=== PATIENT | female | born 1955 | race Caucasian/White ===

== ENCOUNTER 2021-04-09 08:44 | Outpatient (CLI) | payer OTHER, SELFPAY ==
--- NOTE | ~2021-04-09 | CT_ITS ---
EXAMINATION: CT LE LT wo con DATE: 04/09/2021 09:18 INDICATION: Unilateral primary osteoarthritis, left knee. TECHNIQUE: Computed tomography (CT) of the left lower limb was performed without intravenous contrast . Automated exposure control and iterative reconstruction technique were employed. The dose-length pr oduct was 1591.61 mGy-cm. COMPARISON: Left knee radiographs 02/19/2021 FINDINGS: Bone alignment is normal. No fracture. There is mild left hip osteoarthritis. Left knee dem onstrates severe osteoarthritis of the medial and lateral compartments and moderate osteoarthritis of the patellofemoral compartment. There is a small knee joint effusion. There is a small Clarke's cyst. The left talar dome is normal. IMPRESSION: 1. Severe left knee osteoarthritis. 2. Small left knee joint effusion. 3. Small Clarke's cyst. 4. Mild left hip osteoarthritis. Reviewed, dictated and finalized at location A. KEEPING MACHINE OPERATOR
--- NOTE | 2021-04-09 09:56 | ECG_ITS ---
Measurements Intervals [place] Rate: 55 P: 32 WA: 220 QRS: -9 QRSD: 82 T: -9 QT: 423 QTc: 406 Interpretive Statements SINUS BRADYCARDIA WITH FIRST DEGREE AV BLOCK ANTEROSEPTAL INFARCT, AGE INDETERMINATE CONSIDER INFERIOR INFARCT, AGE INDETERMINATE BORDERLINE T WAVE ABNORMALITY- ANTEROLATERAL LEADS BASELINE WANDER- I, II, AVR, AVL ABNORMAL ECG Electronically Signed On 04-09-2021 10:26:43 BOILER OPERATOR by Chidi Jenkins D.O.
[2021-04-09 10:13] LABS: Hematocrit 41.2 % (37.0-47.0); Hemoglobin 13.4 g/dL (12.0-15.0)
[2021-04-09 10:25] LABS: Urine Cotinine NEGATIVE
[2021-04-09 10:26] LABS: Albumin Level 4.7 g/dL (3.5-5.1); Estimated Glomerular Filt Rate > 60; Glucose 99 mg/dL (65-110)
[2021-04-09 10:47] LABS: Hemoglobin A1C 5.6 % (<5.7)
== END 2021-04-09 08:45 | disposition home or self-care (01) ==
PROVIDERS: PCP Family Medicine; Visit Provider Orthopaedic Surgery
DX: M17.12 Unilateral primary osteoarthritis, left knee (principal); M25.462 Effusion, left knee; M71.22 Synovial cyst of popliteal space [Baker], left knee; M16.12 Unilateral primary osteoarthritis, left hip; R94.31 Abnormal electrocardiogram [ECG] [EKG]
CPT/HCPCS: 73700; 80307; 82040; 82565; 82947; 83036; 85014; 85018; 93005

== ENCOUNTER 2021-08-27 10:05 | Outpatient (CLI) | payer OTHER, SELFPAY ==
[2021-08-27 11:28] LABS: Basophils Absolute Auto 0.1 K/mm3 (0.0-0.1); Basophils Percent Auto 0.8 % (0.2-1.2); Eosinophils Absolute Auto 0.2 K/mm3 (0-0.3); Eosinophils Percent Auto 3.4 % (0-4.4); Hematocrit 39.8 % (37.0-47.0); Hemoglobin 12.4 g/dL (12.0-15.0); Immature Granulocyte Absolute 0.03 K/mm3 (0.00-0.031); Immature Granulocyte Percent A 0.4 % (0-0.5); Lymphocytes Percent Auto 39.1 % (18.3-44.2); Mean Corpuscular HGB Conc 31.2 g/dl (32-36); Mean Corpuscular Hemoglobin 28.2 pg (26-34); Mean Corpuscular Volume 90.5 fl (80-100); Mean Platelet Volume 10.3 fl (7.4-10.4); Monocytes Absolute Auto 0.6 K/mm3 (0.1-0.6); Monocytes Percent Auto 7.8 % (2.6-8.5); Neutrophils Absolute Auto 3.5 K/mm3 (1.3-6.7); Neutrophils Percent Auto 48.5 % (45.5-73.1); Platelet Count Result 335 k/mm3 (150-375); Red Cell Distribution Width 14.2 % (11.5-14.5); White Blood Count 7.2 K/mm3 (4.5-10.0)
[2021-08-27 11:44] LABS: Anion Gap 7 mmol/L (8-16); Blood Urea Nitrogen 12 mg/dL (7-17); Calcium 9.1 mg/dL (8.4-10.2); Carbon Dioxide 29 mmol/L (22-30); Chloride 103 mmol/L (98-107); Estimated Glomerular Filt Rate > 60; Glucose 94 mg/dL (65-110); Hemoglobin A1C 5.6 % (<5.7); Potassium 3.7 mmol/L (3.4-5.0); Sodium 139 mmol/L (137-145)
[2021-08-27 11:45] LABS: Albumin Level 4.5 g/dL (3.5-5.1)
[2021-08-27 12:08] LABS: Urine Cotinine NEGATIVE
== END 2021-08-27 10:06 | disposition home or self-care (01) ==
LOC: ANHSURGERY 10:10
PROVIDERS: Anesthesiology; PCP Family Medicine; Visit Provider Orthopaedic Surgery
DX: Z01.818 Encounter for other preprocedural examination (principal); M17.12 Unilateral primary osteoarthritis, left knee; I10 Essential (primary) hypertension
CPT/HCPCS: 36415; 80048; 80307; 82040; 83036; 85025; 87081

== ENCOUNTER 2021-09-18 00:31 | Day surgery (SDC) | payer OTHER, SELFPAY ==
[2021-08-27 10:18] VITALS: BMI 37.5
--- NOTE | 2021-08-27 10:48 | PC.NURSE ---
Report to the Outpatient Waiting Room, entrance under the green pavilion located off [facility], at time _0830 on date _09/18/21 . OR Time:1030 . - You and your visitor will be asked a series of questions to screen for COVID 19 for your protection. - Only one visitor is allowed at this time. - The patient visitor is requested to leave or wait in car when not with patient. - A mask is required within the hospital. Patients may have clear liquids (water, carbonated beverages, clear teas, apple juice) until 3 hours prior to surgery with a maximum of 20 ounces. - No food from midnight until time of surgery - Infants may have breast milk until 4 hours before surgery, infant formula 6 hours prior to surgery. - Children will be allowed to drink immediately following surgery. If applicable, please bring a bottle or sippy cup to assist with drinking. Juice, water, soda, and popsicles are readily available. For infants on formula, please bring formula the day of surgery. Pacifiers are allowed. Take the following medications with a SIP of water the morning of surgery: __NONE Medications to discontinue per physician __ALL VITAMINS AND SUPPLEMENTS 3 DAYS PRE OP AND MELOXICAM 7 DAYS PRE OP Date to take last dose___VITAMINS/SUPP09/14/21 AND MELOXICAM 09/10/21 Please no make-up, nail austrian, hairspray, perfume, deodorant, or body powder the day of surgery. No jewelry (including any body piercings) or valuables the day of surgery, leave them at home. Please take a shower or bath the night before, or the morning of, surgery with an antibacterial soap. Wear comfortable, loose fitting clothing. Children are encouraged to wear pajamas. - Jewelry must be removed prior to entering the operating room. Rings and piercings that are not removed may be cut off. - The hospital will not accept responsibility for valuables. - Please leave all valuables, including medications, at home the day of surgery. If you are going home after surgery, a licensed sprinkler driver must drive you home. - NO public transportation without another adult. - We recommend that an adult stay with you for 24 hours following discharge. - We also recommend that you do not drive, make important decision, drink alcoholic beverages, or take any drugs that were not prescribed by your health care provider for at least 24 hours after your discharge time. For Pediatric surgeries, we recommend two adults accompany the child home (only one inside the building at this time). Follow any additional instructions given to you from your surgeon. If you or anyone in your household have experienced Covid symptoms in the past week, please notify your surgeon or the nurse liaison at the phone number below for possible testing. VERBAL AND WRITTEN instructions given to PATIENT and asked if any additional questions and then verbalized understanding. Patient advised to call surgeon office or pre surgery nurse liaison [phone] if any additional questions.
[2021-08-27 11:01] VITALS: BP 175/77; PULSE 50; RESP 18; TEMP 36.7; O2SAT 98
[2021-09-18] VITALS (15 sets, daily range): BP systolic 130–176; BP diastolic 70–94; PULSE 63–85; RESP 12–21; TEMP 35.8–37.7; O2SAT 92–100
--- NOTE | ~2021-09-18 | XR_ITS ---
EXAMINATION: XR knee LT 2V DATE: 09/18/2021 10:09 INDICATION: Total left knee arthroplasty. Postop. TECHNIQUE: 2 views of left knee were obtained. COMPARISON: Left knee radiographs 02/19/2021 FINDINGS: There is a total left knee arthroplasty with patellar resurfacing in near-anatomic alignmen t. No fracture. There is gas in the knee joint and soft tissues, consistent with recent surgery. IMPRESSION: 1. Total left knee arthroplasty in near-anatomic alignment. Reviewed, dictated and finalized at location A.
[2021-09-18] MEDS: TRANEXAMIC ACID 1,000MG/ISO100 1,000 MG/100 ML BAG 200 MG IVPB (06:40)
[2021-09-18] MEDS: ACETAMINOPHEN 500 MG TABLET 1000 MG PO (06:41)
--- NOTE | 2021-09-18 06:44 | WPDANESEPPF ---
Anes - Initial Pre Proc Eval Procedure: Operation Date: 09/18/21 07:30 Proposed Procedures p Left Custom Total Knee Arthroplasty - John Rojas MD Date/Time: 09/18/21 06:44 Surgeon: John Rojas MD Pre Op Diagnosis: primary OA left knee Patient Data Age: 66 Gender: F Height: 1.54 m Weight: 88.5 kg Last Vital Signs Temp 36.7 C 08/27/21 11:01 Pulse 50 L 08/27/21 11:01 Resp 18 08/27/21 11:01 BP 175/77 H 08/27/21 11:01 Pulse Ox 98 08/27/21 11:01 O2 Del Method Room Air 08/27/21 11:01 Allergies Allergy/AdvReac Type Severity Reaction Status Date / Time tramadol AdvReac Itching Verified 08/27/21 10:20 Home Medications Medication Instructions Recorded Confirmed Type allopurinol 300 mg tablet 300 mg PO DAILY 05/24/19 08/30/21 History atorvastatin 10 mg tablet 10 mg PO QPM 05/24/19 08/30/21 History cholecalciferol (vitamin D3) 10 2,000 unit PO DAILY 05/24/19 08/30/21 History mcg (400 unit) capsule fluticasone propionate 50 1 spray intranasal DAILY 05/24/19 08/30/21 History mcg/actuation nasal spray,suspension hydrochlorothiazide 25 mg tablet 25 mg PO DAILY 05/24/19 08/30/21 History meloxicam 15 mg tablet 15 mg PO PRN PRN Pain 05/24/19 08/30/21 History montelukast 10 mg tablet 10 mg PO PRN PRN Allergy Symptoms 05/24/19 08/30/21 History verapamil 240 mg 24 hr 240 mg PO QPM 05/24/19 08/30/21 History capsule,extended release acetaminophen 650 mg 650 mg PO Q12H PRN Pain 08/27/21 08/27/21 History tablet,extended release (Tylenol Arthritis Pain) ascorbic acid (vitamin C) 100 mg 100 mg PO DAILY 08/27/21 08/27/21 History tablet azelastine-fluticasone 2 spray EACH NARE BID 08/27/21 08/27/21 History metoprolol succinate 100 mg 100 mg PO QPM 08/27/21 08/27/21 History tablet,extended release 24 hr omega 8-fvi-sbt-fish oil 100 1 cap PO QPM 08/27/21 08/27/21 History mg-160 mg-1,000 mg capsule (Fish Oil) zinc 50 mg tablet 50 mg PO DAILY 08/27/21 08/27/21 History Patient hx anesthesia problems: none Family hx anesthesia problems: none Results Review: All pre-operative results and documents have been reviewed as part of the pre-operative evaluation. [facility] Past Medical History Medical History (Updated 09/18/21 @ 06:52 by Sage Woodward DO) Anxiety Arthritis Bilateral primary osteoarthritis of knee GERD (gastroesophageal reflux disease) Gout Hyperlipidemia Hypertension CINDY (obstructive sleep apnea) Surgical History Surgical History History of section (~1987) History of foot surgery (~1990) Status post arthroscopic surgery of left knee (~03/22/11) Status post arthroscopic surgery of right knee (~10/16/12) Family History Family History Father Family history of lung cancer Social History Social History Smoking status: Never smoker Additional smoking assessment comments: DENIES ANY FORM OF TOBACCO USE Alcohol intake: current Living arrangements: alone Spiritual care concerns: No Anes - Eval Final PreProcedure Day of Procedure 09/18/21 06:44 Patient weight: obese Heart: regular rate and rhythm Lungs: clear to auscultation and normal air movement Airway: Mallampati scale Neurological: alert and oriented Last oral intake: >/= 8 hours ASA classification: III Anesthetic plan: proceed Anesthesia type and monitoring: general LMA Results Review: All pre-operative results and documents have been reviewed as part of the pre-operative evaluation. Informed Consent: The patient's anesthetic plan and its attendant risks and benefits were discussed with the patient/family/POA. Questions were solicited and answers provided to the satisfaction of the patient/family/POA.
--- NOTE | 2021-09-18 06:52 | WPDANESPNB ---
Anes - Peripheral Nerve Block Date/Time: 09/18/21 06:52 I have discussed with the patient/family/POA the placement of a peripheral nerve block for post-operative pain management, including associated risks, benefits, complications, and side effects. Alternative methods of post-operative analgesia were detailed. Questions were solicited and answers provided to the satisfaction of the patient/family/POA. Time-Out: A pre-procedural Time-Out was completed immediately before starting the procedure and confirmed: Patient Identification, Site, Procedure, Patient Position and the Availability of Requisite Equipment. Clinical Indications: Acute post-operative pain management requested by the operative surgeon. Nerve Block Insertion Note Anes-nerve block: adductor canal left Patient position: supine Skin prep: chlorhexidine Needle: 22 gauge, stimulating, insulated echogenic needle. Needle length: 80 mm Technique: ultrasound Injectate: bupivacaine 0.5% with epi 5 mcg/ml (30cc - no epi) Observations: tolerated well Complications: none Procedure start time:: 717 Procedure end time:: 721
[2021-09-18] MEDS: LACTATED RINGERS 1,000 ML 30 ML IV CONT ×2 (06:56→09:53)
--- NOTE | 2021-09-18 07:07 | WPDHPUPDATE1 ---
History and Physical Update Update Date/Time: 09/18/21 07:07 History and Physical has been reviewed, including an updated exam of the patient. There are NO changes in the patient's condition. Risks, benefits, and alternatives have been discussed and questions answered. Patient agrees to proceed with procedure.
[2021-09-18] MEDS: ceFAZolin 2 GM/D5W 50 ML 2 GM/50 ML BAG IVPB (07:25)
[2021-09-18] MEDS: GENTAMICIN BONE CEMENT REFOBACIN 1 EACH TOPICAL (08:07)
--- NOTE | 2021-09-18 10:09 | P.OP_ITS ---
Procedure Note - Detailed Date of Procedure 09/18/21 Pre-op Diagnosis primary OA left knee Post-op Diagnosis Same Procedure Performed Total knee arthroplasty, left Surgeon John Rojas MD Anesthesia General and Regional (Subsartorial block.) Findings Slight medial release performed medially with the needle. Description of Procedure Preoperative antibiotics were given. The limb was prepped and draped in the usual sterile fashion with a well-padded tourniquet high on the thigh. The limb was exsanguinated and the tourniquet inflated to 300 mmHg, during exposure and cementation. A longitudinal incision was created just medial to the patella. A trivector approach to the knee was performed. Arthrotomy was taken down through the joint capsule. No significant releases were initially taken. The femur was exposed and the F1 jig was applied. The coring tool was used to remove the cartilage for the F2 jig to sit flush with the bone. The jig was pinned and the distal cut carefully taken. Caliper measurements confirmed appropriate bony resections according to the preoperative templated plan. The F4 cutting jig for the femur was applied, at the standard rotation. The AP and anterior chamfer cuts were taken. The F5 jig was applied and the posterior chamfer cuts were taken. The tibia was prepared using the T1 jig, after removing cartilage for the jig contact points. Proper alignment was checked with the alignment lionel. The tibia was cut using the T1u guide. Gap balancing was performed. Gap measurements were taken and the knee was trialed. Excellent alignment and soft tissue balancing was confirmed. The posterior cruciate ligament was recessed along the proximal tibia. The patella was cut for resurfacing. Three lug holes were drilled. Meniscal remnants were removed. The trial components were assembled. Excellent range of motion and proper soft tissue balancing were confirmed throughout the full range of motion. Patellar tracking was excellent. The knee was copiously irrigated periodically throughout the procedure. The real implants were cemented into position. Dilute Betadine for 3 minutes was applied, then irrigated. Excess cement was carefully removed. The wound was closed in layers with interrupted #1 Vicryl suture, 2-0 strata fix suture, 0 strata fix suture, 2-0 strata fix suture. Steri-Strips placed on the skin with the knee flexed. Sterile bulky dressing applied. The patient was brought to the recovery room in stable condition. There were no complications. Implants Conformis Custom total knee arthroplasty. Cemented. Cruciate retaining. 6A inse rt. 29 mm round patella. Estimated Blood Loss 50 Drains No Complications No immediate complications Condition Stable Disposition PACU [facility] Billing Surgery - Charge Forward: Surgery Billing
[2021-09-18] MEDS: fentaNYL CITRATE INJ (*CRX) 100 MCG/2 ML VIAL 25 MCG IV PUSH ×4 (10:17→10:35)
--- NOTE | 2021-09-18 10:27 | SUR.PHASEI ---
1025: Simple mask removed.
--- NOTE | 2021-09-18 11:15 | ADMGEN ---
This patient, Kely Snyder, was admitted to Medical Room 258-01. Patient/family oriented to hospital policies and general routines including ID bracelet, bed and alarms, visiting hours, pain management, procedures, bathroom and other care routines, personal items, smoking policy, room service/diet, and visiting hours. Information on how to activate the Rapid Response Team has been discussed. Patient/Family are encouraged to report perceived risks to care and to ask questions if they do not understand what they are told or what they should do.
[2021-09-18] MEDS: hydroCHLOROthiazide 25 MG TABLET PO (11:40)
[2021-09-18] MEDS: CHOLECALCIFEROL 1,000 UNITS TABLET 2000 UNITS PO (11:40)
[2021-09-18] MEDS: ZINC SULFATE 220 MG CAPSULE PO (11:40)
[2021-09-18] MEDS: allopurinoL 300 MG TABLET PO (11:40)
[2021-09-18] MEDS: ONDANSETRON INJ 4 MG/2 ML VIAL IV PUSH (12:44)
[2021-09-18] MEDS: SODIUM CHLORIDE 0.9% IV 1,000 ML 125 ML IV CONT (12:45)
[2021-09-18] MEDS: AZELASTINE HCL NASAL 0.1% 137 MCG/SPR 30 ML BTL 2 SPRAY NASAL (16:36)
[2021-09-18] MEDS: ASPIRIN 81 MG ENTERIC TABLET PO (16:36)
[2021-09-18] MEDS: SENNA/DOCUSATE SODIUM TABLET 2 TAB PO (16:36)
[2021-09-18] MEDS: MELOXICAM 7.5 MG TABLET PO (16:36)
[2021-09-18] MEDS: ATORVASTATIN 10 MG TABLET PO (17:45)
[2021-09-18] MEDS: VERAPAMIL HCL ER 240 MG TABLET.ER PO (17:45)
[2021-09-18] MEDS: METOPROLOL SUCCINATE EXT REL 100 MG TABCR PO (17:45)
[2021-09-19 00:46] VITALS: BP 140/63; PULSE 63; RESP 21; TEMP 36.1; O2SAT 100
[2021-09-19 04:46] VITALS: BP 120/55; PULSE 58; RESP 21; TEMP 36.1; O2SAT 100
[2021-09-19 05:54] LABS: Basophils Percent Auto 0.1 % (0.2-1.2); Eosinophils Percent Auto 0.1 % (0-4.4); Hematocrit 33.6 % (37.0-47.0); Hemoglobin 10.8 g/dL (12.0-15.0); Immature Granulocyte Percent A 0.7 % (0-0.5); Lymphocytes Absolute Auto 1.59 K/mm3 (0.9-3.2); Lymphocytes Percent Auto 10.8 % (18.3-44.2); Mean Corpuscular HGB Conc 32.1 g/dl (32-36); Mean Corpuscular Hemoglobin 28.3 pg (26-34); Mean Corpuscular Volume 88.2 fl (80-100); Mean Platelet Volume 10.5 fl (7.4-10.4); Monocytes Absolute Auto 1.2 K/mm3 (0.1-0.6); Monocytes Percent Auto 8.1 % (2.6-8.5); Neutrophils Absolute Auto 11.8 K/mm3 (1.3-6.7); Neutrophils Percent Auto 80.2 % (45.5-73.1); Platelet Count Result 298 k/mm3 (150-375); Red Blood Count 3.81 M/mm3 (4.2-5.4); Red Cell Distribution Width 14.6 % (11.5-14.5); White Blood Count 14.7 K/mm3 (4.5-10.0)
--- NOTE | 2021-09-19 07:32 | P.PNAN_ITS ---
Anes - Prog Note Post-Op Date/Time: 09/19/21 07:32 Cardiovascular status: normal Respiratory status: normal Airway patency: baseline Mental status: baseline Post-Op hydration status: normal Vital Signs: Last Vital Signs Temp 97.0 F L 09/19/21 04:46 Pulse 58 L 09/19/21 04:46 Resp 21 H 09/19/21 04:46 BP 120/55 L 09/19/21 04:46 Pulse Ox 100 09/19/21 04:46 O2 Del Method Room Air 09/18/21 20:00 O2 Flow Rate 8 09/18/21 10:20 Pain Score (VAS): 05/07 I/O: Intake & Output 09/18/21 09/18/21 09/19/21 15:59 23:59 07:59 Intake Total 1240 500 400 Output Total 400 800 700 Balance 840 -300 -300 Laboratory Tests 09/19/21 05:37 09/18/21 09/19/21 09/19/21 06:27 05:37 05:37 WBC 14.7 H RBC 3.81 L Hgb 10.8 L Hct 33.6 L MCV 88.2 MCH 28.3 MCHC 32.1 RDW 14.6 H Plt Count 298 MPV 10.5 H Immature Gran % (Auto) 0.7 H Neut % (Auto) 80.2 H Lymph % (Auto) 10.8 L [place] % (Auto) 8.1 Eos % (Auto) 0.1 Baso % (Auto) 0.1 L Lymph # (Auto) 1.59 [place] # (Auto) 1.2 H Eos # (Auto) 0.0 Baso # (Auto) 0.0 Abs Immat Gran (auto) 0.10 H Absolute Neuts (auto) 11.8 H Absolute Nucleated RBC 0.0 Nucleated RBC % 0.0 Sodium Pending Potassium Pending Chloride Pending Carbon Dioxide Pending Anion Gap Pending BUN Pending Creatinine Pending Estim Creat Clear Calc Pending Estimated GFR Pending Glucose Pending Calcium Pending Blood Type A Positive Antibody Screen Negative Patient Feedback: Patient satisfied with anesthetic care.
[2021-09-19 08:00] VITALS: PULSE 58; RESP 21; O2SAT 100
--- NOTE | 2021-09-19 08:23 | PC.NURSE ---
called pharmacy awaiting delivery of ancef
[2021-09-19] MEDS: CHOLECALCIFEROL 1,000 UNITS TABLET 2000 UNITS PO (08:33)
[2021-09-19] MEDS: polyethylene glycoL 3350 17 GM POWD.PACK PO (08:33)
[2021-09-19] MEDS: ZINC SULFATE 220 MG CAPSULE PO (08:33)
[2021-09-19] MEDS: SENNA/DOCUSATE SODIUM TABLET 2 TAB PO (08:33)
[2021-09-19] MEDS: ASPIRIN 81 MG ENTERIC TABLET PO ×2 (08:34→16:23)
[2021-09-19] MEDS: hydroCHLOROthiazide 25 MG TABLET PO (08:34)
[2021-09-19] MEDS: allopurinoL 300 MG TABLET PO (08:34)
[2021-09-19] MEDS: FLUTICASONE PROPIONATE 0.05% NA SPR 16 GM BTL (*BKC) 1 SPRAY NASAL (08:34)
[2021-09-19] MEDS: AZELASTINE HCL NASAL 0.1% 137 MCG/SPR 30 ML BTL 2 SPRAY NASAL ×2 (08:34→16:23)
[2021-09-19] MEDS: MELOXICAM 7.5 MG TABLET PO ×2 (08:34→16:24)
[2021-09-19 08:35] LABS: Anion Gap 3 mmol/L (8-16); Blood Urea Nitrogen 20 mg/dL (7-17); Calcium 8.5 mg/dL (8.4-10.2); Carbon Dioxide 28 mmol/L (22-30); Chloride 103 mmol/L (98-107); Estimated CRCL calculation 54 ml/min; Estimated Glomerular Filt Rate > 60; Glucose 108 mg/dL (65-110); Potassium 3.8 mmol/L (3.4-5.0); Sodium 134 mmol/L (137-145)
[2021-09-19 10:00] VITALS: BP 132/62; PULSE 66; RESP 16; TEMP 36.1; O2SAT 99
[2021-09-19] MEDS: oxyCODONE HCL (*CRX) 5 MG TAB IR PO (10:05)
[2021-09-19 14:00] VITALS: BP 141/78; PULSE 66; RESP 18; TEMP 36.7; O2SAT 97
--- NOTE | 2021-09-19 14:08 | PC.NURSE ---
called MD Louis, pt inquiring about discharge, Md Louis to place discharge orders.
--- NOTE | 2021-09-19 14:19 | PM.DS ---
DS: Admitting Diagnosis Discharge Date 09/19/21 Admitting Diagnosis OA knee Left DS: Discharge Diagnosis Discharge Diagnosis (1) Status post left knee replacement: Code(s): Z96.652 - Presence of left artificial knee joint Status: Acute Assessment and Plan: Postop day 1: Left total knee arthroplasty. Patient tolerated procedure well. No complications. Pain manageable with pain medication. No numbness or tingling. We had a lengthy discussion regarding postoperative wound care, limitations, expectations, and exercises. Patient shows good understanding. She has had initial physical therapy and is tolerating it well. DVT prophylaxis: 81 mg baby aspirin b.i.d. for 14 days. Pain medication: Percocet. Meloxicam. Prednisone. Patient has followup appointment with Dr. Rojas in 3 weeks. DS: Summary Hospital Course Reason for hospitalization: Total knee arthroplasty Hospital Course: Patient tolerated procedure well. Has had initial PT/OT. No complications. Pain well managed. Status at Discharge Functional status at discharge: uses cane/walker Overall status at discharge: patient is progressing back to baseline Time Spent with Patient Time attestation: Total time spent providing and/or coordinating discharge services: Exam Narrative: Overweight 66 y/o Female. Resting comfortably in chair. No acute distress. A&O x3. Wearing compression socks bilaterally. Dressing intact with no drainage. Moderate swelling. No ecchymosis. No erythema. No hematoma. Good early range of motion 5-80. Calf nontender. Neurologic status intact. No varicosities. Distal pulses palpable. DS: Data Data Completed and Pending Labs on day of discharge: Labs from last 24 hours 09/19/21 09/19/21 07:10 05:37 WBC 14.7 H RBC 3.81 L Hgb 10.8 L Hct 33.6 L MCV 88.2 MCH 28.3 MCHC 32.1 RDW 14.6 H Plt Count 298 MPV 10.5 H Immature Gran % (Auto) 0.7 H Neut % (Auto) 80.2 H Lymph % (Auto) 10.8 L [place] % (Auto) 8.1 Eos % (Auto) 0.1 Baso % (Auto) 0.1 L Lymph # (Auto) 1.59 [place] # (Auto) 1.2 H Eos # (Auto) 0.0 Baso # (Auto) 0.0 Abs Immat Gran (auto) 0.10 H Absolute Neuts (auto) 11.8 H Absolute Nucleated RBC 0.0 Nucleated RBC % 0.0 Sodium 134 L Potassium 3.8 Chloride 103 Carbon Dioxide 28 Anion Gap 3 L BUN 20 H Creatinine 0.90 Estim Creat Clear Calc 54 Estimated GFR > 60 Glucose 108 Calcium 8.5 Discharge Plan Discharge Patient Disposition: Home, Self-Care Discharge Instructions: See green instruction sheets Follow-up/Referrals: Iman Montiel PA [Physician Automatic Line Set Up Mechanic] - Discharge Medications: New aspirin 81 mg tablet,delayed release (DR/EC) 81 mg PO BID 14 Days Qty: 28 0RF prednisone 5 mg tablet 5 mg PO DAILY 21 Days Qty: 21 0RF oxycodone-acetaminophen 5-325 mg tablet 1 - 2 tablet PO Q4-6H MDD 6 PRN (Reason: pain) Qty: 30 0RF meloxicam 15 mg tablet 15 mg PO DAILY Qty: 30 0RF Rx Instructions: Cut in half. Take 1/2 in morning and 1/2 at night. Take with food. Stop if stomach upset. Continued allopurinol 300 mg tablet 300 mg PO DAILY atorvastatin 10 mg tablet 10 mg PO QPM fluticasone propionate 50 mcg/actuation spray,suspension 1 spray NASAL DAILY Rx Instructions: administer into each nostril hydrochlorothiazide 25 mg tablet 25 mg PO DAILY montelukast 10 mg tablet 10 mg PO PRN PRN (Reason: Allergy Symptoms) verapamil 240 mg capsule,ext rel. pellets 24 hr 240 mg PO QPM cholecalciferol (vitamin D3) 400 unit capsule 2,000 unit PO DAILY metoprolol succinate 100 mg tablet extended release 24 hr 100 mg PO QPM azelastine-fluticasone 2 spray EACH NARE BID Fish Oil 100-160-1,000 mg Capsule 1 cap PO QPM ascorbic acid (vitamin C) 100 mg Tablet 100 mg PO DAILY zinc 50 mg Tablet 50 mg PO DAILY H
--- NOTE | 2021-09-19 14:33 | PC.NURSE ---
pt state will be leaving at 1630, pt discharged paperwork explained, all question and concerns answered. IV removed. Prescriptions transmitted to pharmacy of pt choice.
== END 2021-09-19 17:00 | disposition home or self-care (01) ==
LOC: ANHSURGERY 05:50 → ANH2MED 11:05
PROVIDERS: PCP Family Medicine; Visit Provider Orthopaedic Surgery
PROC: (CPT 27447; principal; 2021-09-18 07:30)
DX: M17.12 Unilateral primary osteoarthritis, left knee (principal); G89.18 Other acute postprocedural pain; I10 Essential (primary) hypertension; E78.5 Hyperlipidemia, unspecified; G47.33 Obstructive sleep apnea (adult) (pediatric); M10.9 Gout, unspecified; K21.9 Gastro-esophageal reflux disease without esophagitis; F41.9 Anxiety disorder, unspecified; E66.9 Obesity, unspecified; Z68.37 Body mass index [BMI] 37.0-37.9, adult
CPT/HCPCS: 27447; 64447; 36415; 73560; 80048; 80307; 82040; 83036; 85025; 86850; 86900; 86901; 87081; 97110; 97116; 97161; 97165; 97530; 97535; A9270; C1713; C1776; J0131; J0171; J0690; J1100; J1885; J2250; J2270; J2405; J2704; J2795; J3010; J7030; J7120

== ENCOUNTER 2023-10-01 13:54 | Outpatient (CLI) | payer OTHER, SELFPAY ==
--- NOTE | ~2023-10-01 | XR_ITS ---
Right Knee Technique: AP, lateral, and sunrise views were obtained. Clinical History: Osteoarthritis Findings: No fracture or dislocation is seen. Osseous alignment is anatomic. Moderate tricompartmenta l degenerative spurring present.. Soft tissues are unremarkable. No joint effusion is seen. Impression: Moderate tricompartmental degenerative spurring. Probable medial compartment narrowing. Reviewed, dictated and finalized at location . Impression: Moderate tricompartmental degenerative spurring. Probable medial compartment narrowing.
== END 2023-10-01 13:55 | disposition home or self-care (01) ==
LOC: ANHIMG 14:00
PROVIDERS: Visit Provider Orthopaedic Surgery
DX: M17.11 Unilateral primary osteoarthritis, right knee (principal)
CPT/HCPCS: 73564